=== PATIENT | male | born 1960 | race Caucasian/White ===

== ENCOUNTER 2020-05-27 12:20 | Emergency (ER) | payer OTHER ==
[~2020-05-27 12:20] MED LIST: PHENERGAN 25 MG25 M1 PO
[2020-05-27 14:27] LABS: HEMOGLOBIN 14.3 gm/dl (14.0-17.5); RED BLOOD COUNT 4.47 M/UL (4.20-5.50); WHITE BLOOD COUNT 7.1 K/UL (4.5-11.0)
[2020-05-27 14:57] LABS: BUN/CREATININE RATIO 18 (0-10)
== END 2020-05-27 16:57 | disposition home or self-care (01) ==
LOC: ER1 12:20
PROVIDERS: Physician Assistant
DX: U07.1 COVID-19 (principal); K21.9 Gastro-esophageal reflux disease without esophagitis
CPT/HCPCS: 71045; 80053; 85025; 99283; M0239